=== PATIENT | female | born 1995 | race Caucasian/White ===

== ENCOUNTER 2017-07-29 16:20 | Emergency (ER) | payer BC ==
[~2017-07-29] VITALS: Ht 165.1 cm; Wt 61.4 kg
[2017-07-29 16:23] VITALS: Ht 165.1 cm; Wt 61.4 kg
--- NOTE | 2017-07-29 17:07 | ERD ---
ER Documentation Chief Complaint Chief Complaint PAIN AND SWELLING ON THE LEFT SIDE OF THE JAW HPI This 21-year-old female presents with a lesion on her gums. She saw the dentist this week for swelling which she has had for a long time. The dentist by history appears to lanced it. The patient is taking amoxicillin. Patient presents to the ER because the swelling returned. She denies any fevers, redness and pain is minimal. ROS All systems reviewed and are negative except as per history of present illness. Physical Exam Vitals Vital Signs Date Time Temp Pulse Resp B/P Pulse Ox O2 Delivery O2 Flow Rate FiO2 07/29/17 16:23 98.5 74 17 122/78 98 Physical Exam Const: [] Alert, [id number]. Head: Atraumatic Eyes: Normal Conjunctiva ENT: Normal External Ears, Nose and Mouth. On the lateral aspect at the base of left lower molar there is possibly small area of swelling to the gum near the base of the molar. With palpation a small amount of blood was expressed the lesion lessened in size. Airways patent uvula midline. Neck: Full range of motion..~ No meningismus. Resp: Clear to auscultation bilaterally Cardio: Regular rate and rhythm, no murmurs Abd: Soft, non tender, non distended. Normal bowel sounds Skin: No petechiae or rashes Back: No midline or flank tenderness Ext: No cyanosis, or edema Neur: Awake and alert Psych: Normal Mood and Affect Procedures/MDM She presents with what appears to be a cyst or possibly partially treated abscess on the gumline in the left lower molar. There is no evidence of airway obstruction, sepsis with facial cellulitis. She will discharged home instructions for warm salt water rinses, continuation of antibiotics and dental follow-up this week. She does return sooner for difficulty breathing, difficulty swallowing, fevers, worsening swelling, new or worsening symptoms. Departure Diagnosis: Primary Impression: Dental abscess Condition: Stable Patient Instructions: Dental Abscess Additional Instructions: Rinse mouth with warm salt water. See dentist this week for further evaluation. Continue antibiotics. Recheck for fevers, worsening redness, new symptoms. LISA WATSON MD Jul 29, 2017 17:07
== END 2017-07-29 17:28 | disposition home or self-care (01) ==
LOC: FTE 16:20
DX: K04.7 Periapical abscess without sinus (principal)
CPT/HCPCS: 99282

== ENCOUNTER 2017-08-12 16:00 | Emergency (ER) | payer BC ==
[~2017-08-12] VITALS: Ht 165.1 cm; Wt 61.0 kg
[2017-08-12 16:09] VITALS: Ht 165.1 cm; Wt 61.0 kg
--- NOTE | 2017-08-12 16:35 | ERD ---
ER Documentation Chief Complaint Chief Complaint RIGHT EAR PAIN HPI 21-year-old female presenting with a chief complaint of right ear discomfort 2 weeks. Has used [id number] cream that is made in [place] and has no direct translation with relief. Patient's symptoms resolved 2 days ago. Patient wants to be checked out to make sure nothing is seriously wrong. Denies tinnitus, dizziness, change in vision, headache, neck stiffness, fever, ear pain, or change in hearing. No sick contacts. No similar symptoms in past. Vaccination status up-to-date. Patient has no other complaints and describes no other associated manifestations per ROS All systems reviewed and are negative except as per history of present illness. PMhx/Soc Hx Alcohol Use: No Hx Substance Use: No Hx Tobacco Use: No Physical Exam Vitals Vital Signs Date Time Temp Pulse Resp B/P Pulse Ox O2 Delivery O2 Flow Rate FiO2 08/12/17 16:09 98.4 68 16 126/72 99 Physical Exam Const: Healthy-appearing. Well-nourished. Well-developed. No acute distress. Ears: Nontender. No preauricular lymphadenopathy. Tympanic membranes visualized and were within normal limits. Light cone reflex visualized bilaterally. No pain with movement of the external auricle. No abnormalities on the skin. Oral: No oral edema visualized. Mucous membranes moist and pink. Neck: No cervical lymphadenopathy, masses or goiter palpated. Non- tender. Trachea midline. Supple ~ No meningismus. Neur: Finger-rub test unremarkable. Awake, alert and oriented x3. Neurovascularly intact bilaterally. Nose: Normal external nose; no discharge, septal deviation, or sinus tenderness. Head: Normocephalic, Atraumatic. Eyes: Non-injected; No scleral erythema, discharge or foreign body. EOMI and RODRICK bilaterally. Skin: No petechiae or rashes. Good turgor. Psych: Normal Mood and Affect. Procedures/MDM Otherwise healthy 21-year-old female presenting with a chief complaints of tender lump on the preauricular area that started 2 weeks ago and resolved 2 days ago. Wants to be checked out to make sure nothing is wrong. Over-the- counter unknown cream with resolution. Physical exam unremarkable. No abnormalities. I have no suspicion for infection including malignant otitis externa. Most likely diagnosis is folliculitis versus other skin lesion in the preauricular area. I have spoke with the patient regarding their condition and future management. They have verbally responded that they understand their status and treatment plan. The patients vitals are stable, and their current condition is appropriate for discharge. The patient will be given discharge instructions with return precautions. Departure Diagnosis: Primary Impression: Ear problem Laterality: right Qualified Code: H93.91 - Problem of right ear Condition: Stable Patient Instructions: Folliculitis Referrals: ROSANNA MCGRATH (PCP) Additional Instructions: Follow up with your PCP within the next 1-3 days for a more thorough evaluation and a possible referral to a specialist. Return the the emergency department immediately if symptoms worsen or change. If you have any questions regarding medications, ask your pharmacist or us before you leave. If any adverse reactions occur while taking your medications, discontinue the treatment and return to the emergency department immediately. Take your medications as directed, and complete the entire course of treatment. LOLA LR PA-C Aug 12, 2017 16:34
== END 2017-08-12 16:46 | disposition home or self-care (01) ==
LOC: FTE 16:00
DX: H92.01 Otalgia, right ear (principal)
CPT/HCPCS: 99282

== ENCOUNTER 2017-09-16 15:41 | Emergency (ER) | END 2017-09-16 19:05 | disposition left against medical advice (07) ==